=== PATIENT | male | born 1980 | race Caucasian/White ===

== ENCOUNTER 2023-12-18 08:07 | Day surgery (SDC) | payer BC, SELFPAY ==
[2023-12-18] VITALS (13 sets, daily range): BP systolic 116–133; BP diastolic 77–105; BMI 27.6
--- NOTE | 2023-12-18 12:35 | ITS.CL.ABL ---
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
Ablation
Procedure Report:
Supra-Ventricular Tachycardia � AVRT Ablation:
Mr. Car is a very pleasant�43 yr old gentleman with medical history significant for palpitations and was diagnosed with supra-ventricular tachycardia (SVT). He presented today to the EP lab for electrophysiology (EP) study of the heart and possible
ablation of the SVT.
�
Date of the Procedure:
12/18/2023
Indications: Supra-Ventricular Tachycardia (SVT)
�
Pre-Operative Diagnosis: Supra-Ventricular Tachycardia (SVT)
�
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
�
Procedure Performed: EP study and SVT ablation
�
Performing Physician:
Darby Teran MD
�
Anesthesia:
See anesthesia records
�
Detailed Description of the Procedure:
Written informed consent was obtained from the patient after a full explanation of the risks and benefits of the procedure including the risks of sedation and anesthesia. The patient was brought to the electrophysiology laboratory in stable
condition in fasting state. Continuous electrocardiographic and hemodynamic monitoring was initiated.
The initial rhythm was normal sinus.
The procedure site was meticulously prepared with surgical scrub and allowed to dry with no pooling. Sterile draping was applied to cover the procedure site. The image intensifier was draped with sterile bag and positioned over the patient.
Sheath and Catheter Placement:
After infusion of local anesthetic, vascular access was obtained under ultrasound guidance and sheaths were placed over guide wire as detailed below.
�
Sheaths:
- � � � 6 Fr sheath in right femoral vein
- � � � 6 Fr sheath in right femoral vein � upgraded to 9 Fr Sheath
- � � � 7 Fr sheath in right femoral vein
- � � � 6 Fr that was later upgraded to 11.5 Fr Agilis sheath in right femoral vein
�
Catheters:
- � � � 6Fr - Girish Quad-cath at HRA
- � � � 6Fr - Girish Quad-cath at RVa
- � � � 6Fr � Quad - cath at HIS
- � � � Deca polar Bard catheter - at locations of CS
- � � � ICE in RA
- � � � 3.5 mm force sensing irrigated Thermocool ST SF Bidirectional
�
Patient went into SVT spontaneously and was incessantly in tachycardia (CL of 360 msec.
Following the sheaths placement, patient was given Heparin bolus and EP study was done.
Baseline intervals (milliseconds):
PP interval (baseline cycle length): 690
P wave duration:118
CO interval:147
QRS duration: 154 (delta wave)
QT interval: 487
�
P onset to HRA: 0
P onset to AVJ: 40
AH interval: 82
His duration: 12
HV interval: 45
Q onset to RVa: 0
Delta wave noted � isoelectric in lead 1 and positive in aVF and V1.
��
Sinus Node Function:
HRA pacing showed adequate threshold. The sinus node functions are within acceptable normal range.
�
Atrioventricular Lavern Function:
Atrial stimulation with incremental pacing intervals was performed from the high right atrium (HRA) and right ventricular apex (RVa) and antegrade and retrograde atrioventricular (AV) block cycle lengths were determined. The antegrade AV Wenckebach
was noted at 440 msec.
�
Programmed atrial stimulation was performed with drive train of 600 msec followed by a single atrial extra-stimulus and the AV lavern and the atrial ERPs were determined. The preablation AV lavern ERP was 600/310 msec. The EPS was difficult to obtain
due to incessant SVT.
There was AH jump noted at 600/370 msec indicative of dual AV lavern pathway.
Ventricular stimulation showed eccentric, retrograde conduction through the left lateral pathway. The retrograde VA wenckebach was noted at 240ms, which was likely atrial ERP.
A left lateral accessory pathway was noted.
�
Ventricular Function:
Single ventricular extrastimuli were delivered following drive train of 600 msec and the ventricular ERP was determined at below 700/240 msec. The ventricular electrical functions are within acceptable range.
�
SVT Arrhythmia Induction:
Programmed stimulation including single extrastimuli were delivered from the high right atrium and the proximal coronary sinus location following the drive train at 600 msec. There was easily inducible SVT � 360 msec.
Tachycardia:
The tachycardia was studies with a cycle length of 360 msec. The tachycardia was eccentric and had short VA time. The tachycardia was entrained from the RVa ventricle.
i)������������� RVa PPI was 445msec � 75 msec out of the cycle length of the tachycardia.
ii)������������ Distal CS pacing showed fully pre-excited QRS complexes.�
iii)���������� Proximal CS pacing showed progressive pre-excitation.�
These findings were consistent with left sided accessory pathway.�
Trans-Septal Puncture:
Heparin was initiated and infused to maintain appropriate ACT. A J-tipped guidewire was advanced through the 8-Senegalese sheath in the right femoral vein into the superior vena cava under fluoroscopic and ICE guidance. The 8-Senegalese sheath was exchanged
for an Agilis sheath which was advanced into the superior vena cava. A Brockenbrough needle was advanced until the tip was slightly behind the tip of the dilator inside the Agilis. The apparatus was withdrawn until it was in contact with the fossa
ovalis. The position was adjusted based on fluoroscopy and ultrasound images from ICE. Under fluoroscopic, hemodynamic and ICE ultrasound guidance, left atrium was cannulated by advancing the needle. Once atrial septum was cannulated, the needle was
pulled back and a BMW guide wire was advanced through the needle into the left atrium. The guide wire was advanced into the left superior pulmonary vein. Both the sheath and the dilator was advanced into the left atrium. The dilator with the needle
was withdrawn. Blood was aspirated from the Agilis sheath and arterial blood confirmed. The sheath was flushed. Saline injection noted into the left atrium on ICE. The ablation catheter was advanced in the Agilis sheath into the left pulmonary vein.
Electroanatomic 3D Mapping (EAM) and Ablation:
Patient was given Heparin bolus. The HRA was removed and was upgraded to Agilis as noted above for ablation catheter. EAM and radiofrequency ablation was performed using an open irrigation, force-sensing 3.5mm radiofrequency ablation catheter
(Thermocool STSF). 3D mapping was performed with Carto3 software. Cardiac anatomy as established. His cloud was established.
3D contact electroanatomical map was created using CARTO 3D mapping.�The pathway was mapped in the tachycardia and with RV pacig as well. The AP was noted to be located at the left lateral location.�
Post Ablation EP study:
The post ablation EP study showed normal AV conduction. There was no retrograde VA conduction present post ablation.
The CO was 178msec; QRS was 104msec; AH was 82msec with HV of 45msec.
Post ablation AV lavern ERP was 600/290 msec.
There was no sign of AV block noted.
Procedure End
Following the completion of the EP study, catheters were removed. The sheaths were removed and hemostasis achieved with placement of �figure of 8� sutures and manual compression.
Recommendations:
��������� �Figure of 8� suture to be removed in 4 hours with another 1 hour of bedrest before slow ambulation.
��������� Likely discharge home today.
��������� No change in home medications.
�
Estimated Blood loss:
<5 cc
�
Specimens Removed:
None.
�
Implants / Devices:
None
�
Urine output:
None
�
Packs / Drains/ Tubes:
None
�
Instrument / Sponge Count Correct:
Yes
�
Complications of the Procedure:
None
�
Condition of Patient at Time of Transfer:
Hemodynamically stable with no neurological or vascular compromise.
�
Flouro time:
3.3 minutes�
Summary:
Electrophysiology study with induction of atrioventricular re-entry tachycardia (AVRT) and accessory pathway ablation.
(EP study, SVT ablation, Trans-septal, 3D mapping)
Unipolars during tachycardia at the AP location.
== END 2023-12-18 17:30 | disposition home or self-care (01) ==
LOC: CATH 08:07
PROVIDERS: ATTENDING PHYSICIAN Internal Medicine Cardiovascular Disease; FAMILY PHYSICIAN Internal Medicine; OTHER PHYSICIAN Internal Medicine Cardiovascular Disease
DX: I47.10 Supraventricular tachycardia, unspecified (principal); I45.6 Pre-excitation syndrome; R03.0 Elevated blood-pressure reading, without diagnosis of hypertension
CPT/HCPCS: C1769; C1894; C1730; C1732; C1766; C1892; C1759; 76937; 85347; 93005; 93462; 93653; 93655